=== PATIENT | male | born 1995 | race Caucasian/White ===

== ENCOUNTER 2021-01-13 07:58 | Emergency (ER) | payer OTHER ==
[~2021-01-13] VITALS: Ht 182.9 cm; Wt 80.1 kg
--- NOTE | 2021-01-13 08:37 | REP ---
INDICATION: trauma. COMPARISON: None TECHNIQUE: Four views of the left ribs with frontal view of the chest FINDINGS: There is a fracture involving the anterior end of the left 8th rib. The accompanying frontal view the chest is within normal limits. IMPRESSION: Left 8th rib fracture. <Electronically signed by Klever Kahn > 01/13/21 0837
[2021-01-13] MEDS ORDERED: KETOROLAC TROMETHAMINE 10 MG TAB PO ONE (09:15)
[2021-01-13 09:26] VITALS: BP 129/78
== END 2021-01-13 09:48 | disposition home or self-care (01) ==
LOC: M ED 07:58
DX: S22.32XA Fracture of one rib, left side, initial encounter for closed fracture (principal); W50.0XXA Accidental hit or strike by another person, initial encounter; Y92.138 Other place on military base as the place of occurrence of the external cause; Y99.1 Military activity

== ENCOUNTER 2022-01-29 09:43 | Emergency (ER) | payer OTHER ==
[~2022-01-29] VITALS: Ht 180.3 cm; Wt 80.6 kg
[2022-01-29 09:43] VITALS: BP 153/78
== END 2022-01-29 10:49 | disposition home or self-care (01) ==
LOC: EDBD → M ED 09:43
DX: S93.401A Sprain of unspecified ligament of right ankle, initial encounter (principal); Y92.414 Local residential or business street as the place of occurrence of the external cause; Y93.02 Activity, running